=== PATIENT | male | born 1940 | race Caucasian/White ===

== ENCOUNTER 2023-01-16 06:14 | Outpatient (CLI) | payer MEDICARE, SELFPAY ==
--- NOTE | 2023-01-16 07:48 | W.ANESCHARGE ---
Anesthesia Charges Start Date/Time Anesthesia Start Date: 01/16/23 Anesthesia Start Time: 07:15 Stop Date/Time Anesthesia Stop Date: 01/16/23 Anesthesia Stop Time: 07:47
--- NOTE | 2023-01-16 11:19 | W.ANESCHARGE ---
Anesthesia Charges Start Date/Time Anesthesia Start Date: 01/16/23 Anesthesia Start Time: 07:15 Stop Date/Time Anesthesia Stop Date: 01/16/23 Anesthesia Stop Time: 07:47 Summary Extremes of Age - Over 70 or under 1: MDA
== END 2023-01-16 06:15 | disposition home or self-care (01) ==
PROVIDERS: PCP Family Medicine; Visit Provider Internal Medicine Gastroenterology
DX: Z12.11 Encounter for screening for malignant neoplasm of colon (principal); K63.5 Polyp of colon; K57.30 Diverticulosis of large intestine without perforation or abscess without bleeding; Z86.010 Personal history of colon polyps
CPT/HCPCS: 00811; 45380; 45385; 88305; 99100; J2704

== ENCOUNTER 2023-09-11 16:07 | Emergency (ER) | payer MEDICARE, SELFPAY ==
[2023-09-11 16:11] VITALS: BP 150/76; PULSE 764; RESP 18; TEMP 35.9; O2SAT 94; BMI 28.2
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
[2023-09-11 17:15] VITALS: PULSE 62
[2023-09-11 17:30] VITALS: BP 140/84; PULSE 67; RESP 16; O2SAT 96
== END 2023-09-11 17:30 | disposition home or self-care (01) ==
LOC: ED 17:20
PROVIDERS: Emergency Provider Family Medicine; PCP Family Medicine
DX: M25.511 Pain in right shoulder (principal); M54.6 Pain in thoracic spine; V86.99XA Unspecified occupant of other special all-terrain or other off-road motor vehicle injured in nontraffic accident, initial encounter
CPT/HCPCS: 99283; 99284